=== PATIENT | male | born 1965 ===

== ENCOUNTER 2019-08-25 17:24 | Emergency (ER) | payer MEDICARE ==
--- NOTE | 2019-08-25 19:39 | Event Note ---
ED Screening Note Date of service: 08/25/19 Time: 19:38 (n) ED Screening Note: 53 y o male presents from Gen care for hyperglyce,ia States no symptoms collapsed veins from EMT and gen care This initial assessment/diagnostic orders/clinical plan/treatment(s) is/are subject to change based on patients health status, clinical progression and re- assessment by fellow clinical providers in the ED. Further treatment and workup at subsequent clinical providers discretion. Patient/guardian urged not to elope from the ED as their condition may be serious if not clinically assessed and managed. Initial orders include: ivf FS labs
[2019-08-25] MEDS ORDERED: SODIUM CHLORIDE 0.9% 1000 ML 1,000 ML IV ONE ×2 (19:41→22:00)
[2019-08-25 19:45] VITALS: BP 179/102
[2019-08-25 21:13] LABS: Hemoglobin 16.1 gm/dl (11.8-15.2); Mean Corpuscular HGB Conc 34 % (32-34); Mean Corpuscular Volume 90 fl (84-94); Platelet Count 269 K/mm3 (140-440); Red Blood Count 5.34 M/mm3 (3.65-5.03); Red Cell Distribution Width 13.8 % (13.2-15.2)
[2019-08-25 21:39] LABS: Alanine Aminotransferase 7 units/L (7-56); Albumin 4.3 g/dL (3.9-5); BUN/Creatinine Ratio 13; Blood Urea Nitrogen 14 mg/dL (9-20); Calcium 9.8 mg/dL (8.4-10.2); Hemolysis Index 8
[2019-08-25 21:50] LABS: Basophils % (Manual) 0 % (0.0-1.8); Eosinophils % (Manual) 0 % (0.0-4.3); Total Cells Counted 100
[2019-08-25 21:52] LABS: Anisocytosis Few
[2019-08-25] MEDS ORDERED: INSULIN REGULAR, HUMAN 100 UNITS/1 ML IV ONE (21:58)
--- NOTE | 2019-08-25 22:45 | Emergency Department Report ---
ED General Adult HPI - General Chief complaint: Hyperglycemia Stated complaint: HYPERGLYCEMIA Time Seen by Provider: 08/25/19 21:19 Source: patient Mode of arrival: Ambulatory Limitations: No Limitations - History of Present Illness Initial comments: Mr. Holcomb is a 53-year-old male with history of hypertension diabetes type 2. Persisted via EMS with complaint of medication refill. Patient states his sugar was high 446 at home. Patient denies symptoms no polys. Patient is also sliding-scale regular Humalog and NPH 27 units daily. He is controlled with lisinopril hydrochlorothiazide higher has not had any meds for 4 days. No headache, no dizziness, lightheadedness, no chest pain, no nausea or vomiting, Shortness of breath, no diaphoresis. There is no fever or chills and no other complaint. Onset/Timin -: days(s) Severity scale (0 -10): 0 Consistency: constant Improves with: none Worsens with: none Associated Symptoms: denies other symptoms Treatments Prior to Arrival: none - Related Data Previous Rx's Medication Instructions Recorded Last Taken Type Alcohol Antiseptic Pads [Alcohol 1 each TP PRN PRN #1 box 08/26/19 Unknown Rx Wipes] Insulin NPH, Human [NovoLIN N] 27 unit SUB-Q DAILY #1 vial 08/26/19 Unknown Rx Insulin Regular, Human [Novolin R] 1 units SQ ACHS PRN #1 vial 08/26/19 Unknown Rx Lisinopril/Hydrochlorothiazide 1 each PO QDAY #90 tablet 08/26/19 Unknown Rx [Zestoretic 20-12.5 mg] Syringe and Needle,Insulin,1Ml 1 each MC ACHS PRN #100 disp.syrin 08/26/19 Unknown Rx [Insulin Syringe/Needle 1 ML] Allergies Allergy/AdvReac Type Severity Reaction Status Date / Time bee venom protein (honey bee) Allergy Swelling Verified 08/25/19 20:49 spinach Allergy Unknown Verified 08/25/19 20:49 ED Review of Systems ROS: Stated complaint: HYPERGLYCEMIA Other details as noted in HPI Constitutional: denies: chills, fever Eyes: denies: eye pain, eye discharge, vision change ENT: denies: ear pain, throat pain Respiratory: denies: cough, shortness of breath, wheezing Cardiovascular: denies: chest pain, palpitations Endocrine: no symptoms reported Gastrointestinal: denies: abdominal pain, nausea, diarrhea Genitourinary: as per HPI Musculoskeletal: denies: back pain, joint swelling, arthralgia Skin: denies: rash, lesions Neurological: denies: headache, weakness, paresthesias Psychiatric: denies: anxiety, depression Hematological/Lymphatic: denies: easy bleeding, easy bruising ED Past Medical Hx - Past Medical History Previous Medical History?: Yes Hx Hypertension: Yes Hx Diabetes: Yes - Social History Smoking Status: Current Every Day Smoker Substance Use Type: Marijuana - Medications Home Medications: Home Medications Medication Instructions Recorded Confirmed Last Taken Type Alcohol Antiseptic Pads [Alcohol 1 each TP PRN PRN #1 box 08/26/19 Unknown Rx Wipes] Insulin NPH, Human [NovoLIN N] 27 unit SUB-Q DAILY #1 vial 08/26/19 Unknown Rx Insulin Regular, Human [Novolin R] 1 units SQ ACHS PRN #1 vial 08/26/19 Unknown Rx Lisinopril/Hydrochlorothiazide 1 each PO QDAY #90 tablet 08/26/19 Unknown Rx [Zestoretic 20-12.5 mg] Syringe and Needle,Insulin,1Ml 1 each MC ACHS PRN #100 disp.syrin 08/26/19 Unknown Rx [Insulin Syringe/Needle 1 ML] ED Physical Exam - General Limitations: No Limitations General appearance: alert, in no apparent distress - Head Head exam: Present: atraumatic, normocephalic - Eye Eye exam: Present: normal appearance, EOMI Pupils: Present: normal accommodation - ENT ENT exam: Present: mucous membranes moist - Neck Neck exam: Present: normal inspection, full ROM. Absent: tenderness - Respiratory Respiratory exam: Present: normal lung sounds bilaterally. Absent: respiratory distress, wheezes, stridor - Cardiovascular Cardiovascular Exam: Present: regular rate, normal rhythm, normal heart sounds. Absent: systolic murmur, diastolic murmur, rubs, gallop - GI/Abdominal GI/Abdominal exam: Present: soft, normal bowel sounds. Absent: distended, tenderness, bruit, hernia - Rectal Rectal exam: Present: deferred - Extremities Exam Extremities exam: Present: normal inspection, full ROM. Absent: tenderness - Back Exam Back exam: Present: normal inspection, full ROM. Absent: tenderness, CVA tenderness (R), CVA tenderness (L) - Neurological Exam Neurological exam: Present: alert, oriented X3, normal gait - Psychiatric Psychiatric exam: Present: normal affect, normal mood - Skin Skin exam: Present: warm, dry, intact, normal color. Absent: rash ED Course Vital Signs 08/25/19 08/25/19 18:33 19:44 Temperature 98.0 F Pulse Rate 83 89 Respiratory 16 18 Rate Blood Pressure 193/96 Blood Pressure 179/102 [Left] O2 Sat by Pulse 99 99 Oximetry ED Medical Decision Making - Lab Data Result diagrams: 08/25/19 20:34 08/25/19 20:34 Labs 08/25/19 08/25/19 08/25/19 19:53 20:34 20:34 WBC 12.1 H RBC 5.34 H Hgb 16.1 H Hct 48.0 H MCV 90 MCH 30 MCHC 34 RDW 13.8 Plt Count 269 Lymph # Ground Transportation Operator Add Manual Diff Complete Total Counted 100 Seg Neuts % (Manual) 49.0 Band Neutrophils % 0 Lymphocytes % (Manual) 44.0 H Reactive Lymphs % (Man) 0 Monocytes % (Manual) 7.0 Eosinophils % (Manual) 0 Basophils % (Manual) 0 Metamyelocytes % 0 Myelocytes % 0 Promyelocytes % 0 Blast Cells % 0 Nucleated RBC % Not Reportable Seg Neutrophils # Man 5.9 Band Neutrophils # 0.0 Lymphocytes # (Manual) 5.3 Abs React Lymphs (Man) 0.0 Monocytes # (Manual) 0.8 Eosinophils # (Manual) 0.0 Basophils # (Manual) 0.0 Metamyelocytes # 0.0 Myelocytes # 0.0 Promyelocytes # 0.0 Blast Cells # 0.0 WBC Morphology Not Reportable Hypersegmented Neuts Not Reportable Hyposegmented Neuts Not Reportable Hypogranular Neuts Not Reportable Smudge Cells Not Reportable Toxic Granulation Not Reportable Toxic Vacuolation Not Reportable Dohle Bodies Not Reportable Pelger-Huet Anomaly Not Reportable Juju Rods Not Reportable Platelet Estimate Appears normal Clumped Platelets Not Reportable Plt Clumps, EDTA Not Reportable Large Platelets Not Reportable Giant Platelets Not Reportable Platelet Satelliting Not Reportable Plt Morphology Comment Not Reportable RBC Morphology Not Reportable Dimorphic RBCs Not Reportable Polychromasia Not Reportable Hypochromasia Not Reportable Poikilocytosis Not Reportable Anisocytosis Few Microcytosis Not Reportable Macrocytosis Not Reportable Spherocytes Not Reportable Pappenheimer Bodies Not Reportable Sickle Cells Not Reportable Target Cells Not Reportable Tear Drop Cells Not Reportable Ovalocytes Not Reportable Helmet Cells Not Reportable [place] Bodies Not Reportable Brave Rings Not Reportable [place] Cells Not Reportable Bite Cells Not Reportable Crenated Cell Not Reportable Elliptocytes Not Reportable Acanthocytes (Spur) Not Reportable Rouleaux Not Reportable Hemoglobin C Crystals Not Reportable Schistocytes Not Reportable Malaria parasites Not Reportable Aman Bodies Not Reportable Hem Pathologist Commnt No Sodium 133 L Potassium 4.1 Chloride 92.9 L Carbon Dioxide 25 Anion Gap 19 BUN 14 Creatinine 1.1 Estimated GFR > 60 BUN/Creatinine Ratio 13 Glucose 499 H POC Glucose 321 H Calcium 9.8 Total Bilirubin 0.40 AST 9 ALT 7 Alkaline Phosphatase 70 Total Protein 7.1 Albumin 4.3 Albumin/Globulin Ratio 1.5 Urine Color Urine Turbidity Urine pH Ur Specific [place] Urine Protein Urine Glucose (UA) Urine Ketones Urine Blood Urine Nitrite Urine Bilirubin Urine Urobilinogen Ur Leukocyte Esterase Urine WBC (Auto) Urine RBC (Auto) Urine Mucus 08/25/19 Unknown WBC RBC Hgb Hct MCV MCH MCHC RDW Plt Count Lymph # Add Manual Diff Total Counted Seg Neuts % (Manual) Band Neutrophils % Lymphocytes % (Manual) Reactive Lymphs % (Man) Monocytes % (Manual) Eosinophils % (Manual) Basophils % (Manual) Metamyelocytes % Myelocytes % Promyelocytes % Blast Cells % Nucleated RBC % Seg Neutrophils # Man Band Neutrophils # Lymphocytes # (Manual) Abs React Lymphs (Man) Monocytes # (Manual) Eosinophils # (Manual) Basophils # (Manual) Metamyelocytes # Myelocytes # Promyelocytes # Blast Cells # WBC Morphology Hypersegmented Neuts Hyposegmented Neuts Hypogranular Neuts Smudge Cells Toxic Granulation Toxic Vacuolation Dohle Bodies Pelger-Huet Anomaly Juju Rods Platelet Estimate Clumped Platelets Plt Clumps, EDTA Large Platelets Giant Platelets Platelet Satelliting Plt Morphology Comment RBC Morphology Dimorphic RBCs Polychromasia Hypochromasia Poikilocytosis Anisocytosis Microcytosis Macrocytosis Spherocytes Pappenheimer Bodies Sickle Cells Target Cells Tear Drop Cells Ovalocytes Helmet Cells [place] Bodies Brave Rings [place] Cells Bite Cells Crenated Cell Elliptocytes Acanthocytes (Spur) Rouleaux Hemoglobin C Crystals Schistocytes Malaria parasites Aman Bodies Hem Pathologist Commnt Sodium Potassium Chloride Carbon Dioxide Anion Gap BUN Creatinine Estimated GFR BUN/Creatinine Ratio Glucose POC Glucose Calcium Total Bilirubin AST ALT Alkaline Phosphatase Total Protein Albumin Albumin/Globulin Ratio Urine Color Yellow Urine Turbidity Clear Urine pH 6.0 Ur Specific [place] 1.029 Urine Protein <15 mg/dl Urine Glucose (UA) >=500 Urine Ketones Neg Urine Blood Neg Urine Nitrite Neg Urine Bilirubin Neg Urine Urobilinogen < 2.0 Ur Leukocyte Esterase Neg Urine WBC (Auto) < 1.0 Urine RBC (Auto) 1.0 Urine Mucus Few - Medical Decision Making bg 302, pt is tolerating po , has left room to outside x 2, pt is voiding, there is no no dizziness, no sob, no dysuria , freqency or urgency. pt states ready for discharge to home, plan: refill insulin, and htn med follow up with pcp in 2-3 days, pt verbalized agreement and understanding of discharge plan. Critical care attestation.: If time is entered above; I have spent that time in minutes in the direct care of this critically ill patient, excluding procedure time. ED Disposition Clinical Impression: Hyperglycemia Diabetes mellitus Qualifiers: Diabetes mellitus type: type 2 Diabetes mellitus manager terminal insulin use: with intermediate use Diabetes mellitus complication status: without complication Qualified Code(s): E11.9 - Type 2 diabetes mellitus without complications; Z79.4 - terminal make up operator (current) use of insulin Disposition: DC-01 TO HOME OR SELFCARE Is pt being admited?: No Does the pt Need Aspirin: No Condition: Stable Instructions: Diabetes Mellitus Type 2 in Adults (ED) Prescriptions: Alcohol Antiseptic Pads [Alcohol Wipes] 1 each TP PRN PRN #1 box PRN Reason: accucheck Syringe and Needle,Insulin,1Ml [Insulin Syringe/Needle 1 ML] 1 each MC ACHS PRN #100 disp.syrin PRN Reason: as needed Insulin NPH, Human [NovoLIN N] 27 unit SUB-Q DAILY #1 vial Insulin Regular, Human [Novolin R] 1 units SQ ACHS PRN #1 vial PRN Reason: as needed Lisinopril/Hydrochlorothiazide [Zestoretic 20-12.5 mg] 1 each PO QDAY #90 tablet Referrals: LATASHA MARES MD [Primary Care Provider] - 3-5 Days Forms: Work/School Release Form(ED) Time of Disposition: 00:28
[2019-08-25 23:58] LABS: Bilirubin,Urine NEG (Negative); Blood,Urine NEG (Negative); Color,Urine Yellow (Yellow); Mucus,Urine FEW /HPF; Protein,Urine <15 mg/dL mg/dL (Negative); Urobilinogen,Urine < 2.0 mg/dL (<2.0); WBC,Urine < 1.0 /HPF (0.0-6.0)
== END 2019-08-26 00:58 | disposition home or self-care (01) ==
LOC: ED 17:24
DX: E11.65 Type 2 diabetes mellitus with hyperglycemia (principal); I10 Essential (primary) hypertension; F17.200 Nicotine dependence, unspecified, uncomplicated; F12.10 Cannabis abuse, uncomplicated; Z88.8 Allergy status to other drugs, medicaments and biological substances; Z91.030 Bee allergy status
CPT/HCPCS: 36415; 80053; 81001; 82962; 85007; 85025; 96360; 99284; J7030

== ENCOUNTER 2022-04-12 18:01 | Emergency (ER) | payer SELFPAY ==
[2022-04-12 18:17] VITALS: BP 172/85
== END 2022-04-13 02:23 | disposition left against medical advice (07) ==
LOC: ED 18:01
DX: I10 Essential (primary) hypertension (principal); Z53.21 Procedure and treatment not carried out due to patient leaving prior to being seen by health care provider